=== PATIENT | male | born 1975 | race Caucasian/White ===

== ENCOUNTER 2025-01-17 13:50 | Outpatient (AMB) | payer OTHER, SELFPAY ==
--- NOTE | 2025-01-17 13:51 | A.OFFPC_ITS ---
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 - The last thyroid function test was con ducted over a year ago, and the patient seeks to re-evaluate his thyroid levels. - The patient obtains his medication fro [facility] in [place] and has not seen a doctor in approximately five years. Review of Systems - General: Denies fatigue, fever, or clark ght changes. - Gastrointestinal: Reports occasional c onstipation, attributed to insufficient water intake and high coffee consumption. - Sleep: Reports good sleep quality, den ies snoring or sleep disturbances. 10-point ROS reviewed and negative excep t as noted in HPI Past Medical History - Margy's disease Health Maintenance - Colon cancer screening recommended wit h Cologuard, a non-invasive stool test, to be conducted every three years if results are normal. - Comprehensive blood work including CBC , CMP, TSH, lipid panel, and vitamin levels to be conducted to assess overall health status. Physical Exam General: Well-appearing, in no acute distress. Vital signs: Within normal limits. HEENT: Normocephalic, atraumatic. PERRLA, EOMI. Oropharynx clear, mucous membranes moist. TMs intact bilaterally. Neck: Supple, no lymphadenopathy, no thyromegaly, no JVD or carotid bruits. Cardiovascular: RRR, normal S1/S2, no murmurs, rubs, or gallops. Peripheral pulses 2+ and symmetric. No edema. Respiratory: Lungs clear to auscultation bilaterally, no wheezes, rales, or rhonchi. Normal effort. Abdomen: Soft, non-tender, non-distended. Normoactive bowel sounds. No hepatosplenomegaly, no masses. MSK: Full range of motion, no joint swelling or deformity. Normal gait. Skin: Warm, dry, intact. No rashes, lesions, or pallor. Neuro: Alert and oriented x3. Cranial nerves II-XII intact. Strength 5/5 throughout. Sensation intact. Reflexes 2+ symmetric. Normal coordination and gait. Psych: Appropriate mood and affect. Normal judgment and insight. Plan 1. Margy's Disease - Plan to conduct thyroid function tests including TSH to assess current thyroid hormone levels. - Continue current levothyroxine dosage of 112 mcg daily, with adjustments based on lab results. 2. Preventative Care: Colon Cancer Minna guevara - Recommended Cologuard test for colon c ancer screening, to be conducted every three years if results are normal. - Follow-up colonoscopy if Cologuard res ults indicate abnormalities. Discussion Notes I discussed with the patient the importance of regular monitoring of thyroid function due to his Margy's disease and the need for a thyroid function test to adjust medication if necessary. We also talked about the benefits of using Cologuard for colon cancer screening as a non-invasive option, with the understanding that a colonoscopy would be required if any abnormalities are detected. The patient was informed about the comprehensive blood work to be done today to assess his overall health status. Patient was informed and verbally consented to the use of an ambient scribe for clinic note documentation during this visit. Patient Instructions - Continue taking levothyroxine 112 mcg daily as prescribed. - Complete the Cologuard test as instruc mary alice and return it promptly. - Increase water intake and dietary fibe r to help with occasional constipation. - Follow up in two weeks to discuss lab results and any necessary adjustments to treatment. [facility] Medical History (Updated 01/17/25 @ 14:12 by Yariel Calvillo MD) Margy's disease Encounter to establish care Family History (Updated 01/17/25 @ 13:59 by Wicho Viramontes MA) Father Epilepsy Mother Cancer Social History (Updated 01/17/25 @ 13:59 by Wicho Viramontes MA) Housing: House Alcohol intake: current Alcohol intake frequency: holidays/special occasions only Patient Tobacco Use Status: Never used Tobacco service: No Current occupational status: employed Cognitive needs: No Hearing needs: No Vision needs: No Questionnaire PHQ-9 Over the last 2 weeks, how often have you been bothered by any of the following problems? 1. Little interest or pleasure in doing things: not at all 2. Feeling down, depressed, or hopeless: not at all 3. Trouble falling or staying asleep, or sleeping too much: not at all 4. Feeling tired or having little energy: not at all 5. Poor appetite or overeating: not at all 6. Feeling bad about yourself - or that you are a failure or have let yourself or your family down: not at all 7. Trouble concentrating on things, such as reading the newspaper or watching television: not at all 8. Moving or speaking so slowly that other people could have noticed. Or the opposite - being so fidgety or restless that you have been moving around a lot more than usual: not at all 9. Thoughts that you would be better off or of hurting yourself in some way: not at all Total score: 0 Source: Developed by Drs. Talat Bahena, Nayeli Caro, Ethan Carlin and colleagues, with an educational rd from [employer]. Thrive Questionnaire Date Thrive assessed: 01/17/25 I am a: Patient What is your living situation today?: I have a steady place to live Within the past 12 months, did the food you bought not last and you didn't have the money to get more?: Never true Within the past 12 months, did you worry whether your food would run out before you got money to buy more?: Never true Do you have trouble paying for medicines?: No Do you have trouble getting transportation to medical appointments?: No Do you have trouble paying your heating and electricity bill?: No Do you have trouble taking care of your child, family member or friend?: No Do you have trouble with day-to-day activities such as bathing, preparing meals, shopping, managing finances, etc.?: No Are you currently unemployed and looking for a job?: No Are you interested in more education?: No Please select the resources that you would like help with: None Currently or been in a relationship where the following occur: No concerns reported THRIVE Score: 0 AUDIT C Alcohol Use Questionnaire (AUDIT-C) 1. How often do you have a drink containing alcohol?: 2-4 times a month 2. How many drinks containing alcohol do you have on a typical day when you are drinking?: 1 or 2 3. How often do you have six or more drinks on one occasion?: Never Total Score: 2 ARSLAN-7 AMB Questionnaire ARSLAN-7 Date ARSLAN - 7 assessed: 01/17/25 Feeling nervous, anxious, or on edge: 0 = Not at all Not being able to stop or control worryin = Not at all Worrying too much about different things: 0 = Not at all Trouble relaxin = Not at all Being so restless that it is hard to sit still: 0 = Not at all Becoming easily annoyed or irritable: 0 = Not at all Feeling afraid as if something awful might happen: 0 = Not at all Total ARSLAN-7 score (0-4 normal; 5-9 mild; 10-14 moderate; 15-21 severe): 0 Source: Developed by Drs. Talat Bahena, Nayeli Caro, Ethan Carlin and colleagues, with an educational rd from [employer]. Physical exam (Primary Care) Vital Signs: Last Vital Signs Temp 97.8 F 01/17/25 13:55 Pulse 70 01/17/25 13:55 Resp 16 01/17/25 13:55 BP 114/70 01/17/25 13:55 Pulse Ox 98 01/17/25 13:55 Oxygen Delivery Method Room Air 01/17/25 13:55 BMI result Body Mass Index 24.1 Tobacco/Smoking Status: Tobacco use Status Tobacco use date assessed 01/17/25 01/17/25 14:03 Patient Tobacco Use Status Never used Tobacco 01/17/25 14:03 PHQ-9: PHQ-9 Score PHQ-9: Total score 0 01/17/25 14:03 Thrive Assessment: Date of Thrive Assessment Date Thrive assessed 01/17/25 01/17/25 14:03 Currently or been in a relationship where the following occur: No concerns reported Coding Level of Care Code New Pt Level 3 (35988) Diagnoses Encounter to establish care Z76.89 Margy's disease E06.3 Encounter for screening, unspecified Z13.9 Screening for diabetes mellitus Z13.1 Screening for lipoid disorders Z13.220 Hypertension screen Z13.6 Screening for depression Z13.31 Screening for HIV (human immunodeficiency virus) Z11.4 Encounter for screening for malignant neoplasm of intestinal tract Z12.10 Encounter for screening for malignant neoplasm of rectum Z12.12 Assessment & Plan Assessment & Plan (1) Encounter to establish care: Code(s): Z76.89 - Persons encountering health services in other specified circumstances Category: Medical (2) Margy's disease: Code(s): E06.3 - Autoimmune thyroiditis Category: Medical (3) Encounter for screening, unspecified: Code(s): Z13.9 - Encounter for screening, unspecified (4) Screening for diabetes mellitus: Code(s): Z13.1 - Encounter for screening for diabetes mellitus (5) Screening for lipoid disorders: Code(s): Z13.220 - Encounter for screening for lipoid disorders (6) Hypertension screen: Code(s): Z13.6 - Encounter for screening for cardiovascular disorders (7) Screening for depression: Code(s): Z13.31 - Encounter for screening for depression (8) Screening for HIV (human immunodeficiency virus): Code(s): Z11.4 - Encounter for screening for human immunodeficiency virus [HIV] (9) Encounter for screening for malignant neoplasm of intestinal tract: Code(s): Z12.10 - Encounter for screening for malignant neoplasm of intestinal tract, unspecified (10) Encounter for screening for malignant neoplasm of rectum: Code(s): Z12.12 - Encounter for screening for malignant neoplasm of rectum Plan Orders: Orders Hemoglobin A1c Today Z13.9 - Encounter for screening, unspecified, Z76.89 - Persons encountering health services in other specified circumstances Hepatitis B Surface Antibody Today Z13.9 - Encounter for screening, unspecified, Z76.89 - Persons encountering health services in other specified circumstances HIV Ab/Ag Today Z13.9 - Encounter for screening, unspecified, Z76.89 - Persons encountering health services in other specified circumstances Lipid Panel Today Z13.9 - Encounter for screening, unspecified, Z76.89 - Persons encountering health services in other specified circumstances TSH reflex Free T4 Today Z13.9 - Encounter for screening, unspecified, Z76.89 - Persons encountering health services in other specified circumstances Complete Blood Count Auto Diff Today Z13.9 - Encounter for screening, unspecified, Z76.89 - Persons encountering health services in other specified circumstances Comprehensive Met. Panel Today Z13.9 - Encounter for screening, unspecified, Z76.89 - Persons encountering health services in other specified circumstances Hepatitis B Surface Antigen Today Z13.9 - Encounter for screening, unspecified, Z76.89 - Persons encountering health services in other specified circumstances Hepatitis C Antibody Today Z13.9 - Encounter for screening, unspecified, Z76.89 - Persons encountering health services in other specified circumstances UA CC w/rflx Micro + Cult Today Z13.9 - Encounter for screening, unspecified, Z76.89 - Persons encountering health services in other specified circumstances Vitamin B12 and Folate Today Z13.9 - Encounter for screening, unspecified, Z76.89 - Persons encountering health services in other specified circumstances Vitamin D 1,25 dihydroxy Today Z13.9 - Encounter for screening, unspecified, Z76.89 - Persons encountering health services in other specified circumstances Referrals Cologuard Test Z12.11 - Encounter for screening for malignant neoplasm of colon, Z12.12 - Encounter for screening for malignant neoplasm of rectum, Z13.9 - Encounter for screening, unspecified, Z76.89 - Persons encountering health services in other specified circumstances
[2025-01-17 13:55] VITALS: BP 114/70; PULSE 70; RESP 16; TEMP 36.6; O2SAT 98; BMI 24.1
--- OUTSIDE RECORDS SUMMARY | 2025-01-17 18:21 | XMS_ITS | Clinical Summary ---
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 Role Phone Unavailable Primary Care Provider Unavailabl e Social History Tobacco Use Types Packs/Day Years Used Date Smoking Tobacco: Never Assessed Sex and Gender Information Value Date Recorded Sex Assigned at Male 05/15/2024 11:25 AM EST Legal Sex Male 11:23 AM EST Gender Identity Male 05/15/2024 11:25 AM EST Sexual Orientation Straight 05/15/2024 11 :25 AM EST Plan of Treatment Health Maintenance Due Date Last Done Comments CT Colonography 1977 Colonoscopy 1977 Colorectal Cancer Screening 1977 Depression Screening 1977 FIT DNA/Cologuard 1977 FIT 1977 FOBT 1977 HIV Screening 1977 Lipid Panel 1977 SDOH Screening 1977 Sigmoidoscopy 1977 Disability Screening 1977 Alcohol/Substance Use Screening 1989 Tobacco Screening 1989 Family Planning (PISQ) 01/11/1992 Hepatitis C Screening 1995 Hepatitis B Vaccines (1 of 3 - 19+ 3-dose series) 01/11/1996 DTaP/Tdap/Td Vaccines (2 - T d or Tdap) 04/25/2023 04/25/2013 COVID-19 Vaccine (1 - 2023-2 5 season) 2024 Influenza Vaccine (#1) 2024 Zoster Vaccines (1 of 2) 2027 RSV Patients and Pa tients Aged 60 years or older (1 - 1-dose 75+ series) 01/11/2052 HIB Vaccines Aged Out No longer eligi ble based on patient's age to complete this topic HPV Vaccines Aged Out No longer eligi ble based on patient's age to complete this topic Hepatitis A Vaccines Aged Out No long er eligible based on patient's age to complete this topic IPV Vaccines Aged Out No longer eligi ble based on patient's age to complete this topic Meningococcal B Vaccine Aged Out No l onger eligible based on patient's age to complete this topic Meningococcal Vaccine Aged Out No jesus dexter eligible based on patient's age to complete this topic Pneumococcal Vaccine: Pediat rics (0 to 5 Years) and At-Risk Patients (6 to 49) Years Aged Out No longer eligi ble based on patient's age to complete this topic RSV under 20 months Aged Out No longe r eligible based on patient's age to complete this topic Rotavirus Vaccines Aged Out No longer eligible based on patient's age to complete this topic Insurance
== END 2025-01-17 14:21 | disposition home or self-care (01) ==
LOC: HO.HMCFMS 13:51
PROVIDERS: Visit Provider Student in an Organized Health Care Education/Training Program
DX: E06.3 Autoimmune thyroiditis (principal)

== ENCOUNTER 2025-01-17 13:50 | Outpatient (REF) | payer OTHER, SELFPAY ==
[2025-01-17 17:56] LABS: MANUAL DIFF FLAG NO
[2025-01-17 18:11] LABS: Appearance Urine Clear; Glucose Urine UA Negative (Negative); PH 8.5 (5.0-9.0); Specific Gravity - Urine 1.010 (1.005-1.025)
[2025-01-17 18:13] LABS: Hematocrit 43.0 % (42.0-52.0); Hemoglobin 14.6 g/dl (14.0-18.0); Imm Gran Abs Auto 0.01 X10*3/uL (0.00-0.03); Imm Gran Pct Auto 0.2 % (0.0-0.4); Lymphocytes Absolute Auto 1.3 X10*3/uL (1.2-4.9); Mean Corpuscular HGB Conc 34.0 g/dl (31.0-36.0); Mean Corpuscular Hemoglobin 29.9 pg (27.0-33.0); Mean Corpuscular Volume 87.9 fL (80.0-98.0); NRBC Abs Auto 0.000 X10*3/uL (0.0-0.012); NRBC Pct Auto 0.0 /100WBC (0.0-0.2); Platelet Count 191 X10*3/uL (160-400); Red Blood Count 4.89 X10*6/uL (4.60-5.80); White Blood Count 4.7 X10*3/uL (4.8-10.8)
[2025-01-17 18:16] LABS: Hemoglobin A1C 144.3479 umol/L
[2025-01-17 18:41] LABS: Alanine Aminotransferase 52 U/L (0-40); Albumin Level 4.3 g/dL (3.5-5.0); Alkaline Phosphatase 57 U/L (39-117); Anion Gap 10 (12-20); Aspartate Amino Transferase 37 U/L (5-37); Blood Urea Nitrogen 12 mg/dL (9-16); Calcium 8.8 mg/dL (8.4-10.2); Carbon Dioxide 29 mmol/L (22-29); Chloride 107 mmol/L (96-108); Cholesterol 215 mg/dL (<200); Estimated Glomerular Filt Rate > 60; HDL Cholesterol 43 mg/dL (>40); Potassium 4.1 mmol/L (3.3-5.1); Sodium 142 mmol/L (135-145); Total Protein 6.6 g/dL (6.5-8.0); Triglycerides 256 mg/dL (<150)
[2025-01-17 19:03] LABS: Folate 10.3 ng/mL (> or = 4.0); Vitamin B12 391 pg/mL (200-900)
[2025-01-17 19:11] LABS: Free T4 (Free Thyroxine) 1.19 ng/dL (0.71-1.85)
[2025-01-18 08:24] LABS: HBS Num1 0.12 mIU/mL (0-7.99); HBsAGNum1 0.47 S/CO (0.00-0.99); HIV Num 1 0.05 S/CO (0.00-0.99); Hepatitis B Surface Antigen Negative (Negative); ~HepC Num1 0.09 S/CO (0.00-0.79); ~Hepatitis B Surface Antibody NONREACTIVE (Nonreactive); ~Hepatitis C Antibody Nonreactive (Nonreactive)
[2025-01-21 19:48] LABS: VITAMIN D (1,25 OH) D3 43 pg/mL; Vit D (1,25-Dihydroxy) Total 43 pg/mL (18-72); Vitamin D (1,25 OH) D2 <8 pg/mL
== END 2025-01-17 13:51 | disposition home or self-care (01) ==
LOC: HO.HKASLDS 13:50
PROVIDERS: Visit Provider Student in an Organized Health Care Education/Training Program
DX: Z76.89 Persons encountering health services in other specified circumstances (principal); Z11.4 Encounter for screening for human immunodeficiency virus [HIV]; Z13.1 Encounter for screening for diabetes mellitus; E06.3 Autoimmune thyroiditis
CPT/HCPCS: 36415; 80053; 80061; 81003; 82607; 82652; 82746; 83036; 84439; 84443; 85025; 86706; 86803; 87340; 87389

== ENCOUNTER 2025-02-07 13:13 | Outpatient (AMB) | payer OTHER, SELFPAY ==
[2025-02-07 13:26] VITALS: BP 109/62; PULSE 75; RESP 16; TEMP 36.4; O2SAT 97; BMI 24.5
--- NOTE | 2025-02-07 13:26 | MHC.PC.OV ---
Vital Signs 02/07/25 13:26 Height 5 ft 8.9 in Weight 165 lb 2 oz BMI 24.5 BP 109/62 Blood Pressure Location Rt brachial Position Sitting Respiration 16 Pulse 75 Pulse Source Pulse Oximeter Temp 97.6 F Temp Source Oral Pulse Oximetry (%) 97 Oxygen Delivery Method Room Air Intake Visit Reasons: 2 wk f/u., resched Cable Reeler Required: No Accompanied by: Self / Same As Patient Allergies No Known Allergies Allergy (Verified 02/07/25 13:27) Tobacco use date assessed: 02/07/25 Dental Screening Dental Screen Date: 02/07/25 Did you have a dental visit in the last 12 months?: Yes Did you have a dental problem in the last 6 months where you did not have access to dental care?: No Was dental information given to patient?: Patient has dentist HPI HPI Comments History of Present Illness Details Consent Patient was informed and verbally consented to the use of an ambient scribe for clinic note documentation during this visit. History of Present Illness The patient is a 50-year-old male presenting for a routine check-up and management of chronic conditions. Prediabetes: - The patient's hemoglobin A1c is 5.7%, indicating prediabetes. - The patient was advised to monitor carbohydrate intake and be aware of dietary habits. Hyperlipidemia: - The patient's triglycerides are elevated at 256 mg/dL, total cholesterol at 215 mg/dL, and LDL cholesterol at 121 mg/dL. - The patient has been advised to adjust dietary habits and exercise regularly. Subclinical Hypothyroidism: - The patient is currently on levothyroxine 112 mcg, with a plan to reduce to 100 mcg due to low TSH levels. - The patient reports symptoms potentially related to thyroid imbalance, such as blurry vision when dehydrated. Overuse Injury of the Arm: - The patient reports pain in the arm following repetitive use with a sledgehammer, suggestive of an overuse injury. - The patient has been advised to use an elbow brace and limit arm movement. Xanthelasma: - The patient has been observed to have lipid plaques, indicative of xanthelasma, related to elevated cholesterol levels. Review of Systems - Endocrine: Reports blurry vision when dehydrated, potentially related to thyroid imbalance. - Musculoskeletal: Reports pain in the arm with specific movements, suggestive of an overuse injury. 10-point ROS reviewed and negative except as noted in HPI Past Medical History - Subclinical hypothyroidism, currently managed with levothyroxine. Health Maintenance - Colon cancer screening with stool test completed. - Referral to a registered medical transcriptionist for dietary guidance. - Exercise recommendation: 30 minutes of moderate intensity exercise daily. Physical Exam General: Well-appearing, in no acute distress. Vital signs: Within normal limits. HEENT: Normocephalic, atraumatic. PERRLA, EOMI. Conjunctiva clear, sclera anicteric. Oropharynx clear, mucous membranes moist. TMs intact bilaterally. Noted presence of a lipid plaque on the eye, likely due to elevated cholesterol. Neck: Supple, no lymphadenopathy, no thyromegaly, no JVD or carotid bruits. Cardiovascular: RRR, normal S1/S2, no murmurs, rubs, or gallops. Peripheral pulses 2+ and symmetric. No edema. Respiratory: Lungs clear to auscultation bilaterally, no wheezes, rales, or rhonchi. Normal effort. Abdomen: Soft, non-tender, non-distended. Normoactive bowel sounds. No hepatosplenomegaly, no masses. MSK: Full range of motion, no joint swelling or deformity. Normal gait. Noted overuse injury in the arm, likely due to repetitive motion, with pain on specific movements. Skin: Warm, dry, intact. No rashes, lesions, or pallor. Neuro: Alert and oriented x3. Cranial nerves II-XII intact. Strength 5/5 throughout. Sensation intact. Reflexes 2+ symmetric. Normal coordination and gait. Psych: Appropriate mood and affect. Normal judgment and insight. Plan 1. Prediabetes - Monitor dietary intake, particularly carbohydrates, to prevent progression to diabetes. 2. Hyperlipidemia - Adjust dietary habits and increase physical activity to manage lipid levels. - No medication prescribed at this time; focus on lifestyle modification. 3. Subclinical Hypothyroidism - Reduce levothyroxine dosage from 112 mcg to 100 mcg and re-evaluate thyroid function in 6-8 weeks. 4. Overuse Injury Of The Arm - Use an elbow brace to limit movement and allow healing. - Consider ibuprofen for pain management if necessary. 5. Xanthelasma - Monitor lipid levels and manage hyperlipidemia to prevent progression. Discussion Notes During the visit, I discussed the patient's lab results, highlighting the prediabetes status and elevated lipid levels. We talked about the importance of dietary modifications and regular exercise to manage these conditions. I explained the plan to adjust the levothyroxine dosage to address subclinical hypothyroidism and the potential impact on lipid levels. We also discussed the overuse injury of the arm, recommending the use of a brace and possible ibuprofen for pain. I emphasized the importance of follow-up lab tests in 6-8 weeks to assess the effectiveness of these interventions. Patient Instructions - Monitor carbohydrate intake and maintain a balanced diet. - Engage in 30 minutes of moderate intensity exercise daily. - Use an elbow brace to limit arm movement and aid healing. - Follow up with a registered medical transcriptionist for dietary guidance. - Return for lab tests in 6-8 weeks to monitor thyroid and lipid levels. Medical Decision Making The patient's lab results indicate prediabetes and hyperlipidemia, which are being managed through lifestyle modifications rather than medication at this time. The decision to reduce the levothyroxine dosage is based on the subclinical hypothyroidism diagnosis, with the expectation that normalizing thyroid function will positively impact lipid levels. The overuse injury is addressed with conservative measures, including bracing and potential use of NSAIDs. The plan includes follow-up lab tests to evaluate the effectiveness of these interventions. Total time spent caring for the patient today was 30 minutes. This includes time spent before the visit reviewing the chart, time spent documenting, and time spent reviewing laboratory results, diagnostic imaging, medications, performing a medically necessary evaluation, counseling on diagnoses, care coordination, ordering appropriate tests, ordering appropriate medications. 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 1. Little interest or pleasure in doing things: not at all 2. Feeling down, depressed, or hopeless: not at all 3. Trouble falling or staying asleep, or sleeping too much: not at all 4. Feeling tired or having little energy: not at all 5. Poor appetite or overeating: not at all 6. Feeling bad about yourself - or that you are a failure or have let yourself or your family down: not at all 7. Trouble concentrating on things, such as reading the newspaper or watching television: not at all 8. Moving or speaking so slowly that other people could have noticed. Or the opposite - being so fidgety or restless that you have been moving around a lot more than usual: not at all 9. Thoughts that you would be better off or of hurting yourself in some way: not at all Total score: 0 Source: Developed by Drs. Talat Bahena, Nayeli Caro, Ethan Carlin and colleagues, with an educational rd from [employer]. Thrive Questionnaire Date Thrive assessed: 02/07/25 I am a: Patient What is your living situation today?: I have a steady place to live Within the past 12 months, did the food you bought not last and you didn't have the money to get more?: Never true Within the past 12 months, did you worry whether your food would run out before you got money to buy more?: Never true Do you have trouble paying for medicines?: No Do you have trouble getting transportation to medical appointments?: No Do you have trouble paying your heating and electricity bill?: No Do you have trouble taking care of your child, family member or friend?: No Do you have trouble with day-to-day activities such as bathing, preparing meals, shopping, managing finances, etc.?: No Are you currently unemployed and looking for a job?: No Are you interested in more education?: No Please select the resources that you would like help with: None Currently or been in a relationship where the following occur: No concerns reported THRIVE Score: 0 AUDIT C Alcohol Use Questionnaire (AUDIT-C) 1. How often do you have a drink containing alcohol?: 2-4 times a month 2. How many drinks containing alcohol do you have on a typical day when you are drinking?: 1 or 2 3. How often do you have six or more drinks on one occasion?: Never Total Score: 2 ARSLAN-7 AMB Questionnaire ARSLAN-7 Date ARSLAN - 7 assessed: 02/07/25 Feeling nervous, anxious, or on edge: 0 = Not at all Not being able to stop or control worryin = Not at all Worrying too much about different things: 0 = Not at all Trouble relaxin = Not at all Being so restless that it is hard to sit still: 0 = Not at all Becoming easily annoyed or irritable: 0 = Not at all Feeling afraid as if something awful might happen: 0 = Not at all Total ARSLAN-7 score (0-4 normal; 5-9 mild; 10-14 moderate; 15-21 severe): 0 Source: Developed by Drs. Talat Bahena, Nayeli Caro, Ethan Carlin and colleagues, with an educational rd from [employer]. Physical exam (Primary Care) Vital Signs: Last Vital Signs Temp 97.6 F 02/07/25 13:26 Pulse 75 02/07/25 13:26 Resp 16 02/07/25 13:26 BP 109/62 02/07/25 13:26 Pulse Ox 97 02/07/25 13:26 Oxygen Delivery Method Room Air 02/07/25 13:26 BMI result Body Mass Index 24.5 Tobacco/Smoking Status: Tobacco use Status Tobacco use date assessed 02/07/25 02/07/25 13:30 Patient Tobacco Use Status Never used Tobacco 02/07/25 13:30 PHQ-9: PHQ-9 Score PHQ-9: Total score 0 02/07/25 13:30 Thrive Assessment: Date of Thrive Assessment Date Thrive assessed 02/07/25 02/07/25 13:30 Currently or been in a relationship where the following occur: No concerns reported Coding Level of Care Code Est Pt Level 4 (66209) Diagnoses Xanthelasma H02.60 Hyperlipidemia E78.5 Prediabetes R73.03 Subclinical hypothyroidism E03.8 Bursitis due to overuse M70.80 Assessment & Plan Assessment & Plan (1) Xanthelasma: Code(s): H02.60 - Xanthelasma of unspecified eye, unspecified eyelid (2) Hyperlipidemia: Code(s): E78.5 - Hyperlipidemia, unspecified Category: Medical (3) Prediabetes: Code(s): R73.03 - Prediabetes (4) Subclinical hypothyroidism: Code(s): E03.8 - Other specified hypothyroidism (5) Bursitis due to overuse: Code(s): M70.80 - Other soft tissue disorders related to use, overuse and pressure of unspecified site Plan Orders: Referrals Nurse Navigator Referral E78.5 - Hyperlipidemia, unspecified Medications: New levothyroxine (Synthroid) 100 mcg PO DAILY 90 tabs 0RF
--- OUTSIDE RECORDS SUMMARY | 2025-02-07 16:36 | XMS_ITS | Clinical Summary ---
Author Organization [employer] Address [address] [place] [address] [address] [place] [address] Care Team Providers Care Machine Candle Molder Name Role Phone Unavailable Primary Care Provider [...]
== END 2025-02-07 14:00 | disposition home or self-care (01) ==
LOC: HO.HMCFMS 13:14
PROVIDERS: PCP Student in an Organized Health Care Education/Training Program; Visit Provider Student in an Organized Health Care Education/Training Program
DX: H02.60 Xanthelasma of unspecified eye, unspecified eyelid (principal); E78.5 Hyperlipidemia, unspecified; R73.03 Prediabetes; E03.8 Other specified hypothyroidism; M70.80 Other soft tissue disorders related to use, overuse and pressure of unspecified site

== ENCOUNTER 2025-04-04 12:57 | Outpatient (REF) | payer OTHER, SELFPAY ==
--- OUTSIDE RECORDS SUMMARY | 2025-04-04 20:31 | XMS_ITS | Clinical Summary ---
Author Organization [employer] Address [address] [place] [address] [address] [place] [address] Care Team Providers Care [facility] Name Role Phone Unavailable Primary Care Provider [...] Tdap) 04/25/2023 04/25/2013 COVID-19 Vaccine (1 - 2024-2 6 season) 2024 Influenza Vaccine (#1) 2024 Zoster [...]
== END 2025-04-04 12:58 | disposition home or self-care (01) ==
LOC: HO.HKASLDS 12:57
PROVIDERS: PCP Student in an Organized Health Care Education/Training Program; Visit Provider Student in an Organized Health Care Education/Training Program
DX: E06.3 Autoimmune thyroiditis (principal); Z13.39 Encounter for screening examination for other mental health and behavioral disorders; Z13.31 Encounter for screening for depression
CPT/HCPCS: 36415; 84443; 90471; 96127

== ENCOUNTER 2025-04-04 12:57 | Outpatient (AMB) | payer OTHER, SELFPAY ==
[2025-04-04 13:02] VITALS: BP 107/58; PULSE 66; TEMP 36.4; O2SAT 98; BMI 23.9
--- NOTE | 2025-04-04 13:02 | A.OFFPC_ITS ---
Vital Signs 04/04/25 13:02 Height 5 ft 8.9 in Weight 161 lb 4 oz BMI 23.9 BP 107/58 L Blood Pressure Location Lt brachial Position Sitting Pulse 66 Pulse Source Pulse Oximeter Temp 97.6 F Temp Source Oral Pulse Oximetry (%) 98 Oxygen Delivery Method Room Air Intake Visit Reasons: 8 week follow up Accompanied by: Self / Same As Patient Allergies No Known Allergies Allergy (Verified 04/04/25 13:11) Medication List - Last Reconciled 04/05/25 by Yariel Calvillo MD levothyroxine (Synthroid) 100 mcg PO DAILY Tobacco use date assessed: 04/04/25 Dental Screening Dental Screen Date: 04/04/25 Did you have a dental visit in the last 12 months?: Yes HPI HPI Comments History of Present Illness Details History of Present Illness The patient is a 50 year old male presenting for follow-up and management of prediabetes, hyperlipidemia, and subclinical hypothyroidism. Subclinical hypothyroidism: The patient has a history of subclinical hypothyroidism, and his medication dosage was previously reduced from 112 mcg to 100 mcg due to low TSH levels. He reports feeling fine since the dosage change and has not noticed any major differences. Arm pain: The patient reports persistent, annoying arm pain, which was previously discussed in the context of overuse. He notes a brief, temporary resolution of the pain for one day before it returned. Common Cold: The patient had a cold for the past week but is now feeling better. He has been managing symptoms with vitamin C, teas, and hot beverages. Blurry vision: The patient previously reported experiencing blurry vision when dehydrated. Hyperlipidemia: The patient has a history of hyperlipidemia which is being monitored. Prediabetes: The patient has a history of prediabetes. Medications: - Unspecified thyroid medication 100 mcg for subclinical hypothyroidism, reduced from 112 mcg. Social History: - Travel: The patient recently traveled to [place], [place]. - Past Residence: He previously lived in [place], [place] for a number of years. - History: He has a history of service. Diagnostic Results: - Labs: Previous TSH levels were low, pr ompting a reduction in his thyroid medication dose. Past Medical History - Subclinical hypothyroidism, with a rec ent medication reduction from 112 mcg to 100 mcg. - Prediabetes - Hyperlipidemia - History of a common cold within the week. 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 1. Little interest or pleasure in doing things: not at all 2. Feeling down, depressed, or hopeless: not at all 3. Trouble falling or staying asleep, or sleeping too much: not at all 4. Feeling tired or having little energy: not at all 5. Poor appetite or overeating: not at all 6. Feeling bad about yourself - or that you are a failure or have let yourself or your family down: not at all 7. Trouble concentrating on things, such as reading the newspaper or watching television: not at all 8. Moving or speaking so slowly that other people could have noticed. Or the opp osite - being so fidgety or restless that you have been moving around a lot more than usual: not at all 9. Thoughts that you would be better off or of hurting yourself in some way: not at all Total score: 0 Depression Screening Interpretation: Negative Depression Screening Done: Yes Source: Developed by Drs. Talat Bahena, Nayeli Caro, Ethan Carlin and colleagues, with an educational rd from [employer]. Thrive Questionnaire Date Thrive assessed: 01/17/25 I am a: Patient What is your living situation today?: I have a steady place to live Within the past 12 months, did the food you bought not last and you didn't have the money to get more?: Never true Within the past 12 months, did you worry whether your food would run out before you got money to buy more?: Never true Do you have trouble paying for medicines?: No Do you have trouble getting transportation to medical appointments?: No Do you have trouble paying your heating and electricity bill?: No Do you have trouble taking care of your child, family member or friend?: No Do you have trouble with day-to-day activities such as bathing, preparing meals, shopping, managing finances, etc.?: No Are you currently unemployed and looking for a job?: No Are you interested in more education?: No Please select the resources that you would like help with: None Currently or been in a relationship where the following occur: No concerns reported THRIVE Score: 0 AUDIT C Alcohol Use Questionnaire (AUDIT-C) 1. How often do you have a drink containing alcohol?: 2-4 times a month 2. How many drinks containing alcohol do you have on a typical day when you are drinking?: 1 or 2 3. How often do you have six or more drinks on one occasion?: Never Total Score: 2 ARSLAN-7 AMB Questionnaire ARSLAN-7 Date ARSLAN - 7 assessed: 04/04/25 Feeling nervous, anxious, or on edge: 0 = Not at all Not being able to stop or control worryin = Not at all Worrying too much about different things: 0 = Not at all Trouble relaxin = Not at all Being so restless that it is hard to sit still: 0 = Not at all Becoming easily annoyed or irritable: 0 = Not at all Feeling afraid as if something awful might happen: 0 = Not at all Total ARSLAN-7 score (0-4 normal; 5-9 mild; 10-14 moderate; 15-21 severe): 0 Source: Developed by Drs. Talat Bahena, Nayeli Caro, Ethan Carlin and colleagues, with an educational rd from [employer]. Review of Systems Narrative Review of Systems - General: Reports feeling pretty good overall, though he recently recovered from a cold. - Constitutional: Denies any major differences in how he feels since his medication change. - Eyes: Reports blurry vision when dehydrated. - Musculoskeletal: Reports persistent and annoying arm pain. 10-point ROS reviewed and negative except as noted in HPI Physical exam (Primary Care) Vital Signs: Last Vital Signs Temp 97.6 F 04/04/25 13:02 Pulse 66 04/04/25 13:02 BP 107/58 L 04/04/25 13:02 Pulse Ox 98 04/04/25 13:02 Oxygen Delivery Method Room Air 04/04/25 13:02 BMI result Body Mass Index 23.9 Tobacco/Smoking Status: Tobacco use Status Tobacco use date assessed 04/04/25 04/04/25 13:12 Patient Tobacco Use Status Never used Tobacco 04/04/25 13:05 PHQ-9: PHQ-9 Score PHQ-9: Total score 0 04/04/25 13:27 Depression Screening Interpretation: Negative Thrive Assessment: Date of Thrive Assessment Date Thrive assessed 01/17/25 04/04/25 13:05 Currently or been in a relationship where the following occur: No concerns reported Narrative Physical Exam General: Well-appearing, in no acute distress. Vital signs: Within normal limits. HEENT: Normocephalic, atraumatic. PERRLA, EOMI. Conjunctiva clear, sclera anicteric. Oropharynx clear, mucous membranes moist. TMs intact bilaterally. Neck: Supple, no lymphadenopathy, no thyromegaly, no JVD or carotid bruits. Cardiovascular: RRR, normal S1/S2, no murmurs, rubs, or gallops. Peripheral pulses 2+ and symmetric. No edema. Respiratory: Lungs clear to auscultation bilaterally, no wheezes, rales, or rhonchi. Normal effort. Abdomen: Soft, non-tender, non-distended. Normoactive bowel sounds. No hepatosplenomegaly, no masses. MSK: Full range of motion, no joint swelling or deformity. Normal gait. Reports arm pain that intermittently resolves and returns. Skin: Warm, dry, intact. No rashes, lesions, or pallor. xanthelsma bilat eyelids upper Neuro: Alert and oriented x3. Cranial nerves II-XII intact. Strength 5/5 throughout. Sensation intact. Reflexes 2+ symmetric. Normal coordination and gait. Psych: Appropriate mood and affect. Normal judgment and insight. Office Procedures Flu Questionnaire Does the patient have a severe egg allergy?: No Does the patient have severe life threatening allergies?: No Does the patient have a fever or illness today?: No Has the patient ever had Guillain-[place] Syndrome?: No Has the patient ever had any past reaction to a flu shot?: No Immunizations Fluarix [id number] (PF) 45 mcg (15 mcg x 3)/0.5 mL IM syringe Performing Provider: Yariel Calvillo MD Performing Location: [facility] Documented (not given) by: Ijeoma Hawkins CMA on 04/04/25 13:28 Reason Not Given: Patient Refused Coding Level of Care Code Est Pt Level 3 (01689) Add On Problem Visit Only Diagnoses 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 Plan 1. Subclinical Hypothyroidism - To re-evaluate thyroid function after a recent dosage reduction, a TSH and free T4 level will be ordered to assess the current status. 2. Hyperlipidemia - To manage hyperlipidemia and prevent progression, lipid levels will be checked. 3. Common Cold - As the patient is feeling better, continued supportive care with vitamin C, teas, and hot fluids is recommended as it runs its course. Discussion Notes I reviewed the patient's history of prediabetes, hyperlipidemia, and subclinical hypothyroidism. We discussed the recent reduction of his thyroid medication from 112 mcg to 100 mcg due to low TSH levels, and he reports feeling fine with no major differences. I informed the patient that we will obtain new thyroid levels (TSH, free T4) and lipid levels to monitor his conditions. Patient Instructions - Please proceed to the lab to have blood drawn for thyroid levels and lipid levels. - For your recent cold, continue taking vitamin C, drinking teas and other hot fluids as needed. Medical Decision Making The patient is a 50-year-old male here for follow-up of multiple chronic conditions, including subclinical hypothyroidism, prediabetes, and hyperlipidem ia. His thyroid medication was recently decreased from 112 mcg to 100 mcg due to low TSH, indicating a need to re-evaluate his thyroid function. He reports no adverse effects from this change. Given the time elapsed, it is appropriate to check his TSH and free T4 levels now. In order to manage his hyperlipidemia and prevent disease progression, checking his lipid panel is also warranted. His ongoing arm pain is noted, but no acute intervention is planned at this visit. His recent cold appears to be resolving with self-care, requiring no further intervention. Total Time Statement 20 min Total time spent caring for the patient today includes pre-visit chart review, documentation, review of laboratory and diagnostic imaging results, medication reconciliation, medically necessary evaluation, counseling on diagnoses, care coordination, ordering appropriate tests and medications, review of tests performed by other providers, reporting test results to the patient, and communication with other healthcare providers. Orders: Orders Influenza [id number] Immunization 04/04/25 Z23 - Encounter for immunization TSH reflex Free T4 04/04/25 E06.3 - Autoimmune thyroiditis
== END 2025-04-04 13:17 | disposition home or self-care (01) ==
LOC: HO.HMCFMS 12:58
PROVIDERS: PCP Student in an Organized Health Care Education/Training Program; Visit Provider Student in an Organized Health Care Education/Training Program
DX: Z23 Encounter for immunization (principal)